=== PATIENT | male | born 1950 | race Caucasian/White ===

== ENCOUNTER 2021-08-18 04:57 | Emergency (ER) | payer MEDICARE ==
[~2021-08-18] VITALS: Ht 172.7 cm; Wt 90.7 kg
[2021-08-18] MEDS ORDERED: KETOROLAC 30 MG/ML VIAL IVP STA (05:10)
[2021-08-18] MEDS ORDERED: INSU100I34 (05:12)
[2021-08-18] MEDS ORDERED: ATOR20TA66 (05:12)
[2021-08-18] MEDS ORDERED: METF750T45 (05:12)
[2021-08-18] MEDS ORDERED: LACTATED RINGERS 1,000 ML IV ONE (05:15)
--- NOTE | 2021-08-18 05:22 | ED Back Pain ---
General Chief Complaint: Back Problems Stated Complaint: POSS KIDNEY STONE,LEFT SIDE Source of Information: Patient (CHINA GAN DO) History of Present Illness Date Seen by Provider: Aug 18, 2021 Time Seen by Provider: 05:10 Initial Comments PT ARRIVES VIA POV FROM HOME WITH STATES HE WOKE UP AT 0230 WITH SHARP PAIN IN LEFT FLANK AREA PT IS MOVING AROUND TO LEFT MID ABDOMEN + NAUSEA, VOMITED 9-10 TIMES NO FEVER HAS NOT BEEN ABLE TO URINATE VERY MUCH SINCE THIS STARTED NOTHING WORSENS OR IMPROVES PAIN HAS NOT TAKEN ANYTHING FOR PAIN NO HISTORY OF SIMILAR Other Comments PCP: DR. RENAE (CHINA GAN DO) Allergies and Home Medications Allergies Coded Allergies: No Known Drug Allergies (Unverified , 08/18/21) Patient Home Medication List Home Medication List Reviewed: Yes (DANE DIAZ) Atorvastatin Calcium (Atorvastatin Calcium) 20 Mg Tablet, (Reported) Entered as Reported by: KWASI BARBOSA on 08/18/21511 Last Action: New Order Cephalexin (Cephalexin) 500 Mg Tablet, 500 MG PO BID Prescribed by: DANE DIAZ on 08/18/21633 Hydrocodone/Acetaminophen (Hydrocodone-Acetamin 5-325 mg) 5 Mg-325 Mg Tablet, 1- 2 TAB PO Q6H PRN for PAIN-MODERATE (5-7) Prescribed by: DANE DIAZ on 08/18/21634 Insulin Glargine,Hum.rec.anlog (Basaglar Kwikpen U-100) 100 Unit/Ml (3 Ml) Insuln.pen, (Reported) Entered as Reported by: KWASI BARBOSA on 08/18/21511 Last Action: New Order Metformin HCl (Metformin HCl ER) 750 Mg Tab.er.24h, (Reported) Entered as Reported by: KWASI BARBOSA on 08/18/21511 Last Action: New Order Ondansetron (Ondansetron Odt) 4 Mg Tab.rapdis, 4 MG PO Q6H PRN for NAUSEA/VOMITING Prescribed by: DANE DIAZ on 08/18/21633 Tamsulosin HCl (Flomax) 0.4 Mg Cap, 0.4 MG PO DAILY Prescribed by: DANE DIAZ on 08/18/21633 Review of Systems Constitutional: no symptoms reported Respiratory: no symptoms reported Cardiovascular: no symptoms reported Gastrointestinal: see HPI Genitourinary: see HPI Musculoskeletal: see HPI Skin: no symptoms reported Psychiatric/Neurological: No Symptoms Reported (CHINA GAN DO) Past Qkpzqet-Ddypqm-Ypgntw Hx Patient Social History Tobacco Use?: No Substance use?: No Alcohol Use?: No Pt feels they are or have been: No (CHINA GAN DO) Past Medical History Surgery/Hospitalization HX: HIGH CHOLESTEROL, IDDM, HTN, HERNIA REPAIR, T/A, GALLBLADDER, RIGHT KNEE Surgeries: Yes (L INGUINAL HERNIA; R KNEE MENISCUS REPAIR; GA; TONSILLECTOMY) Abdominal, Gallbladder, Orthopedic, Tonsillectomy Respiratory: No Cardiac: Yes High Cholesterol Neurological: No Genitourinary: No Gastrointestinal: Yes (S/P LEFT INGUINAL HERNIA REPAIR AND CHOLECYSTECTOMY) Abdominal Hernia, Gall Bladder Disease Musculoskeletal: Yes (RIGHT KNEE MENISCUS REPAIR) Endocrine: Yes Diabetes, Insulin dep HEENT: No Cancer: No Psychosocial: No Integumentary: No Blood Disorders: No (CHINA GAN DO) Physical Exam Vital Signs Vital Signs - First Documented 08/18/21 05:08 Temp 36.7 Pulse 73 Resp 16 B/P (MAP) 176/113 (134) Pulse Ox 98 O2 Delivery Room Air (DANE DIAZ) Vital Signs Capillary Refill : (CHINA GAN DO) Height, Weight, BMI Height: '" Weight: lbs. oz. kg; BMI Method: General Appearance: No Apparent Distress, WD/WN, Other (SMILING, TALKATIVE, LAUGHING, VERY PLEASANT. DOES NOT APPEAR ILL OR TO BE IN ANY DISCOMFORT OR DISTRESS. LAYING OUTSTRETCHED AT THIS TIME. 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 Norm as Tested Skin: Normal Color, Warm/Dry; No Rash (CHINA GAN DO) Progress/Results/Core Measures Results/Orders Lab Results Laboratory Tests Test 08/18/21 05:20 08/18/21 06:35 Range/Units White Blood Count 5.9 4.3-11.0 10^3/uL Red Blood Count 3.61 L 4.30-5.52 10^6/uL Hemoglobin 8.9 L 13.3-17.7 g/dL Hematocrit 29 L 40-54 % Mean Corpuscular Volume 79 L 80-99 fL Mean Corpuscular Hemoglobin 25 25-34 pg Mean Corpuscular Hemoglobin Concent 31 L 32-36 g/dL Red Cell Distribution Width 24.7 H 10.0-14.5 % Platelet Count 238 130-400 10^3/uL Mean Platelet Volume 10.4 9.0-12.2 fL Immature Granulocyte % (Auto) 1 % Neutrophils (%) (Auto) 53 42-75 % Lymphocytes (%) (Auto) 33 12-44 % Monocytes (%) (Auto) 10 0-12 % Eosinophils (%) (Auto) 3 0-10 % Basophils (%) (Auto) 1 0-10 % Neutrophils # (Auto) 3.1 1.8-7.8 10^3/uL Lymphocytes # (Auto) 2.0 1.0-4.0 10^3/uL Monocytes # (Auto) 0.6 0.0-1.0 10^3/uL Eosinophils # (Auto) 0.2 0.0-0.3 10^3/uL Basophils # (Auto) 0.1 0.0-0.1 10^3/uL Immature Granulocyte # (Auto) 0.0 0.0-0.1 10^3/uL Sodium Level 141 135-145 MMOL/L Potassium Level 3.7 3.6-5.0 MMOL/L Chloride Level 103 98-107 MMOL/L Carbon Dioxide Level 25 21-32 MMOL/L Anion Gap 13 5-14 MMOL/L Blood Urea Nitrogen 14 7-18 MG/DL Creatinine 1.31 H 0.60-1.30 MG/DL Estimat Glomerular Filtration Rate 59 BUN/Creatinine Ratio 11 Glucose Level 201 H 70-105 MG/DL Calcium Level 9.5 8.5-10.1 MG/DL Corrected Calcium 9.3 8.5-10.1 MG/DL Total Bilirubin 0.4 0.1-1.0 MG/DL Aspartate Amino Transf (AST/SGOT) 28 5-34 U/L Alanine Aminotransferase (ALT/SGPT) 22 0-55 U/L Alkaline Phosphatase 86 40-136 U/L Total Protein 7.4 6.4-8.2 GM/DL Albumin 4.2 3.2-4.5 GM/DL Urine Color IDALIA H Urine Clarity SL CLOUDY Urine pH 5.5 5-9 Urine Specific [place] >=1.030 1.016-1.022 Urine Protein 2+ H NEGATIVE Urine Glucose (UA) NEGATIVE NEGATIVE Urine Ketones TRACE H NEGATIVE Urine Nitrite NEGATIVE NEGATIVE Urine Bilirubin 1+ H NEGATIVE Urine Urobilinogen 1.0 < = 1.0 MG/DL Urine Leukocyte Esterase 1+ H NEGATIVE Urine RBC (Auto) 3+ H NEGATIVE Urine RBC TNTC H /HPF Urine WBC 2-5 /HPF Urine Squamous Epithelial Cells 0-2 /HPF Urine Crystals PRESENT H /LPF Urine Calcium Oxalate Crystals FEW H /LPF Urine Amorphous Sediment MOD SILVIA URATES H /LPF Urine Bacteria NEGATIVE /HPF Urine Casts PRESENT /LPF Urine Hyaline Casts 0-2 H /LPF Urine Mucus NEGATIVE /LPF Urine Culture Indicated NO (DANE DIAZ) My Orders Orders - DANE DIAZ Hydrocodone/Apap 5/325 Tablet (Lortab 5 (08/18/21 07:00) (DANE DIAZ) Medications Given in ED Current Medications Medications Dose Ordered Sig/Violeta Route Start Time Stop Time Status Last Admin Dose Admin Acetaminophen/ Hydrocodone Bitart 2 ea ONCE ONCE PO 08/18/21 07:00 08/18/21 07:01 DC 08/18/21 06:58 2 EA Lactated Ringer's 1,000 ml @ 0 mls/hr Q0M ONCE IV 08/18/21 05:15 08/18/21 05:16 DC 08/18/21 05:23 0 MLS/HR Ondansetron HCl 4 mg ONCE ONCE IVP 08/18/21 05:30 08/18/21 05:31 DC 08/18/21 05:23 4 MG (DANE DIAZ) Vital Signs/I&O 08/18/21 08/18/21 08/18/21 05:08 06:58 08:00 Temp 36.7 36.7 Pulse 73 81 Resp 16 16 B/P (MAP) 176/113 (134) 166/103 Pulse Ox 98 96 O2 Delivery Room Air Room Air (DANE DIAZ) Progress Progress Note : Progress Note GIVEN IV FLUIDS, ZOFRAN AND TORADOL 0600--CARE TURNED OVER TO DR. DIAZ, ALL STUDIES PENDING. (CHINA GAN DO) Progress Note : Progress Note Patient had significant improvement of pain from a 6 out of 10 down to a 2 out of 10. His pain started to come back before his fluids were finished so we gave him 2 tablets of hydrocodone 5 x 325. He was able to walk out of here and procure prescription sent in accordance with the instructions given. Questions were answered. Return precautions were discussed. (DANE DIAZ) Diagnostic Imaging Diagonstic Imaging: CT Plain Films/CT/US/NM/MRI: abdomen, pelvis Comments [facility] [place] [place] NAME: KWASI WILSON [facility] REC#: [id number] PT STATUS: REG ER : 1950 PHYSICIAN: CHINA GAN DO ADMIT DATE: 08/18/21/ER Draft Date of Exam:08/18/21 CT ABD/PELVIS WO(KIDNEY STONE) EXAMINATION: CT abdomen and pelvis without contrast. TECHNIQUE: Multiple contiguous axial images were obtained through the abdomen and pelvis without the use of intravenous contrast. All CT scans use one or more of the following dose optimizing techniques: automated exposure control, MA and/or KvP adjustment based on patient size and exam type or iterative reconstruction. HISTORY: Flank pain, kidney stone suspected COMPARISON: 07/14/2014 FINDINGS: Lung bases: The lung bases are clear. Solid organs: The liver is normal. The gallbladder is surgically absent. There is no biliary ductal dilation. Pancreas is normal. Spleen is normal. Adrenal glands are normal. There is minimal left hydronephrosis and hydroureter. There is a 0.2 cm calculus within the distal left ureter at the ureterovesicular junction. Bowel: The stomach and small bowel are normal without obstruction. There is scattered colonic diverticulosis. The appendix is normal. Peritoneum: There is no intraperitoneal free fluid or free air. No suspicious lymphadenopathy. Vasculature: Normal without aneurysm. Musculoskeletal: Degenerative changes of the spine without suspicious osseous lesion or compression fracture. Pelvis: The prostate gland is normal. The urinary bladder is normal. IMPRESSION: 1. A 0.2 cm calculus at the distal left ureter at the ureterovesicular junction resulting in minimal left hydronephrosis and hydroureter. 2. Colonic diverticulosis. Dictated on workstation # [id number] Dict: 08/18/21 0603 Trans: 08/18/21608 PIEDAD [id number] Interpreted by: KWASI NOWAK DO Electronically signed by: Reviewed: Reviewed by Me Diagonstic Imaging: Xray Plain Films/CT/US/NM/MRI: abdomen, pelvis Comments [facility] [place] [place] NAME: KWASI WILSON [facility] REC#: [id number] PT STATUS: REG ER : 1950 PHYSICIAN: CHINA GAN DO ADMIT DATE: 08/18/21/ER Draft Date of Exam:08/18/21 ABDOMEN/KUB 1VIEW EXAMINATION: Abdomen 1 view HISTORY: abdomen pain COMPARISON: 08/18/2021 FINDINGS: There is a moderate amount of gas and stool throughout the colon. Nonobstructive bowel gas pattern. No radiopaque foreign body. The lung bases are clear. The osseous structures are intact. IMPRESSION: Moderate stool burden without other acute abnormality in the abdomen. Dictated on workstation # [id number] Dict: 08/18/21 0605 Trans: 08/18/21609 PIEDAD [id number] Interpreted by: KWASI NOWAK DO Electronically signed by: Reviewed: Reviewed by Me (DANE DIAZ) Departure Impression Primary Impression: Ureteral calculus Disposition: 01 HOME, SELF-CARE Condition: Stable Departure-Patient Inst. Decision time for Depature: 06:16 (DANE DIAZ) Referrals: PAMELA RENAE MD (PCP/Family) Primary Care Physician AMINA SPAIN MD Patient Instructions: Kidney Stones (DC) Add. Discharge Instructions: Drink lots of fluids. Strain your urine to see if you can catch the stone. Tylenol 650 mg every 8 hours needed for pain. Ibuprofen 800 mg every 8 hours as needed for pain. Hydrocodone 1 tablet every 6 hours as needed for pain. Ondansetron 1 tablet every 6 hours as needed for nausea or vomiting. Flomax daily until the stone passes. Follow-up with Dr. [place], urology if your stone does not pass on its own in the next day or 2. All discharge instructions reviewed with patient and/or family. Voiced understanding. Scripts Hydrocodone/Acetaminophen (Hydrocodone-Acetamin 5-325 mg) 5 Mg-325 Mg Tablet 1-2 TAB PO Q6H PRN for PAIN-MODERATE (5-7), #15 TAB 0 Refills Prov: DANE DIAZ 08/18/21 Ondansetron (Ondansetron Odt) 4 Mg Tab.rapdis 4 MG PO Q6H PRN for NAUSEA/VOMITING, #8 TAB 0 Refills Prov: DANE DIAZ 08/18/21 Cephalexin (Cephalexin) 500 Mg Tablet 500 MG PO BID for 5 Days, #10 TAB 0 Refills Prov: DANE DIAZ 08/18/21 Tamsulosin HCl (Flomax) 0.4 Mg Cap 0.4 MG PO DAILY for 7 Days, #7 CAP 0 Refills Prov: DANE DIAZ 08/18/21 Copy Copies To 1: AMINA SPAIN MD, LISA K DO Aug 18, 2021 05:22 DANE DIAZ Aug 18, 2021 06:21
[2021-08-18] MEDS ORDERED: ONDANSETRON 4 MG/2 ML (SDV) Z0FRAN IVP ONE (05:30)
[2021-08-18 05:43] LABS: ALBUMIN 4.2 GM/DL (3.2-4.5); POTASSIUM 3.7 MMOL/L (3.6-5.0)
[2021-08-18 05:44] LABS: CALCIUM 9.5 MG/DL (8.5-10.1)
[2021-08-18 05:45] LABS: TOTAL PROTEIN 7.4 GM/DL (6.4-8.2)
[2021-08-18 05:47] LABS: BILIRUBIN,TOTAL 0.4 MG/DL (0.1-1.0)
[2021-08-18 05:49] LABS: CREATININE SERUM 1.31 MG/DL (0.60-1.30)
[2021-08-18 05:52] LABS: BASOPHILS # (AUTO) 0.1 10^3/uL (0.0-0.1); BASOPHILS % (AUTO) 1 % (0-10); EOSINOPHILS # (AUTO) 0.2 10^3/uL (0.0-0.3); EOSINOPHILS % (AUTO) 3 % (0-10); HEMATOCRIT 29 % (40-54); HEMOGLOBIN 8.9 g/dL (13.3-17.7); LYMPHOCYTES % (AUTO) 33 % (12-44); MEAN CORPUSCULAR HEMOGLOBIN 25 pg (25-34); MEAN CORPUSCULAR HGB CONC 31 g/dL (32-36); MEAN CORPUSCULAR VOLUME 79 fL (80-99); MEAN PLATELET VOLUME 10.4 fL (9.0-12.2); MONOCYTES # (AUTO) 0.6 10^3/uL (0.0-1.0); MONOCYTES % (AUTO) 10 % (0-12); NEUTROPHILS # (AUTO) 3.1 10^3/uL (1.8-7.8); NEUTROPHILS % (AUTO) 53 % (42-75); PLATELET COUNT 238 10^3/uL (130-400); WHITE BLOOD COUNT 5.9 10^3/uL (4.3-11.0)
--- NOTE | 2021-08-18 06:10 | Diagnostic Imaging Report ---
EXAMINATION: CT abdomen and pelvis without contrast. TECHNIQUE: Multiple contiguous axial images were obtained through the abdomen and pelvis without the use of intravenous contrast. All CT scans use one or more of the following dose optimizing techniques: automated exposure control, MA and/or KvP adjustment based on patient size and exam type or iterative reconstruction. HISTORY: Flank pain, kidney stone suspected COMPARISON: 07/14/2014 FINDINGS: Lung bases: The lung bases are clear. Solid organs: The liver is normal. The gallbladder is surgically absent. There is no biliary ductal dilation. Pancreas is normal. Spleen is normal. Adrenal glands are normal. There is minimal left hydronephrosis and hydroureter. There is a 0.2 cm calculus within the distal left ureter at the ureterovesicular junction. Bowel: The stomach and small bowel are normal without obstruction. There is scattered colonic diverticulosis. The appendix is normal. Peritoneum: There is no intraperitoneal free fluid or free air. No suspicious lymphadenopathy. Vasculature: Normal without aneurysm. Musculoskeletal: Degenerative changes of the spine without suspicious osseous lesion or compression fracture. Pelvis: The prostate gland is normal. The urinary bladder is normal. IMPRESSION: 1. A 0.2 cm calculus at the distal left ureter at the ureterovesicular junction resulting in minimal left hydronephrosis and hydroureter. 2. Colonic diverticulosis. Dictated by: Dictated on workstation # [id number]
--- NOTE | 2021-08-18 06:11 | Diagnostic Imaging Report ---
EXAMINATION: Abdomen 1 view HISTORY: abdomen pain COMPARISON: 08/18/2021 FINDINGS: There is a moderate amount of gas and stool throughout the colon. Nonobstructive bowel gas pattern. No radiopaque foreign body. The lung bases are clear. The osseous structures are intact. IMPRESSION: Moderate stool burden without other acute abnormality in the abdomen. Dictated by: Dictated on workstation # [id number]
[2021-08-18] MEDS ORDERED: ONDA4TAB11 PO (06:34)
[2021-08-18] MEDS ORDERED: CEPH500T PO (06:34)
[2021-08-18] MEDS ORDERED: TMSL.4C PO (06:34)
[2021-08-18] MEDS ORDERED: ACHD5005 PO (06:34)
[2021-08-18 06:48] LABS: CLARITY,URINE SL CLOUDY; COLOR,URINE AMBER; GLUCOSE, URINE (UA) NEGATIVE (NEGATIVE); KETONES,URINE TRACE (NEGATIVE); LEUKOCYTE ESTERASE ,URINE 1+ (NEGATIVE); NITRITE,URINE NEGATIVE (NEGATIVE); PH,URINE 5.5 (5-9); PROTEIN,URINE 2+ (NEGATIVE)
[2021-08-18] MEDS ORDERED: HYDROcodone/APAP 5 MG/325 MG (LORTAB) TAB PO ONE (07:00)
[2021-08-18 07:11] LABS: BACTERIA,URINE NEGATIVE /HPF; BILIRUBIN,URINE 1+ (NEGATIVE); RBC,URINE TNTC /HPF; SQUAMOUS EPITHELIAL CELL,UR 0-2 /HPF
[2021-08-18 07:12] LABS: AMORPHOUS SEDIMENT,UR MOD AMOR URATES /LPF; CALCIUM OXALATE CRYSTALS,UR FEW /LPF; HYALINE CASTS, URINE 0-2 /LPF
[2021-08-18 08:00] VITALS: BP 166/103
== END 2021-08-18 08:00 | disposition home or self-care (01) ==
LOC: EDUNIT# 04:57 → ER 05:04
DX: N20.1 Calculus of ureter (principal); E11.9 Type 2 diabetes mellitus without complications; Z79.4 Long term (current) use of insulin
CPT/HCPCS: 36415; 74018; 74176; 80053; 81000; 85025

== ENCOUNTER → 2021-08-19 | Outpatient (CLI) | payer MEDICARE ==
[~2021-08-19] MED LIST: ACHD5005 PO; ATOR20TA66; CEPH500T PO; INSU100I34; METF750T45; ONDA4TAB11 PO; TMSL.4C PO
== END ==
LOC: LAB 14:37
PROVIDERS: ATTEND Nurse Practitioner Family
DX: N20.0 Calculus of kidney (principal)